=== PATIENT | female | born 1950 | race Caucasian/White ===

== ENCOUNTER → 2016-08-19 | Outpatient (CLI) | payer MEDICARE, BC ==
[~2016-08-19] MED LIST: AMBIEN 5MG TABLE5 MG PO; BENADRYL25 M2 PO; BENTYL 20MG TAB20 MG PO; CELEBREX 200MG200 MG PO; EFFEXOR XR150 MG PO; EFFEXOR XR37.5 MG PO; EFFEXOR-XR150 MG PO; FOSAMAX 70MG TA70 MG PO; GABAPENTIN600 MG PO; IMITREX25 MG PO; KLONOPIN 0.5MG0.5 MG PO; LOPERAMIDE2 MG PO; MECLIZINE25 M1 PO; MUCINEX 60600 MG/TA1 PO; NYSTATIN1 POW; OMEPRAZOLE20 MG PO; PHENERGAN 25 TA25 MG PO; PREMARIN .3MG0.3 MG PO; PREVALITE; PROTONIX 40MG T40 MG PO; RHINOCORT0.032 MG/1 NS; RYZOLT200 MG PO; SUPHEDRINE30 MG PO; TRAMADOL; TYLENOL #3 301 UDTAB PO; ULTRAM 50MG TAB50 MG PO; WELLBUTRIN SR150 M1 PO; [UNRECOGNIZED DRUG - OTHER]
== END ==
LOC: MC.RAD 10:40
DX: Z12.31 Encounter for screening mammogram for malignant neoplasm of breast (principal); D24.2 Benign neoplasm of left breast; D24.1 Benign neoplasm of right breast

== ENCOUNTER → 2017-08-25 | Outpatient (CLI) | payer MEDICARE, BC | LOC: COL.RAD 13:45 | DX: M47.26 Other spondylosis with radiculopathy, lumbar region (principal) ==